=== PATIENT | female | born 1945 | race Caucasian/White ===

== ENCOUNTER → 2018-09-15 | Outpatient (REF) | payer OTHER ==
[2018-09-15 18:31] LABS: BLOOD UREA NITROGEN 16 MG/DL (7-18); CALCIUM LEVEL 8.9 MG/DL (8.8-10.2); CARBON DIOXIDE LEVEL 30 MEQ/L (21-32); CHLORIDE LEVEL 106 MEQ/L (98-107); CREATININE FOR GFR 0.63 MG/DL (0.55-1.30); GLOMERULAR FILTRATION RATE > 60.0 (>39); GLUCOSE, FASTING 114 MG/DL (70-100); POTASSIUM SERUM 4.7 MEQ/L (3.5-5.1); SODIUM LEVEL 141 MEQ/L (136-145)
== END ==
LOC: M LAB REF 16:57
PROVIDERS: ATTEND Internal Medicine Pulmonary Disease
DX: J44.9 Chronic obstructive pulmonary disease, unspecified (principal)

== ENCOUNTER → 2018-09-28 | Outpatient (CLI) | payer OTHER ==
[~2018-09-28] MED LIST: PROHANCE 279.3MG/ML 15ML VIAL (A9576) As Ordered ONE
--- NOTE | 2018-09-28 15:19 | REP ---
MRI BRAIN WITHOUT AND WITH IV GADOLINIUM: HISTORY: Tremor. Abnormal gait. Checking for mass lesion. Gadolinium enhancement dose: 15 mL of intravenous ProHance. TECHNIQUE: Axial and sagittal imaging planes are utilized for T1- and T2-weighted scans. Sequences include spin echo, fast spin echo, FLAIR, and diffusion weighted sequences. MRI FINDINGS: Craniocervical junction and upper cervical cord are unremarkable. No bony calvarial lesion is appreciated. The lateral, third, fourth ventricles are normal in position and appearance. There is minimal generalized volume loss. There is no evidence of intracranial mass lesion. No infarct or hemorrhage is seen. Diffusion weighted scans show no evidence to suggest acute ischemia. There is minimal small vessel change in the periventricular white matter on FLAIR T2-weighted scans in the frontal lobes. Post contrast gadolinium enhanced images show enhancement of normal vascular structures. No abnormal gadolinium enhancement is appreciated. There is some motion artifact on postcontrast coronal sequence and to a lesser extent the axial sequence. IMPRESSION: No acute intracranial lesion. Electronically Signed by Jono Slater MD 09/28/2018 05:30 P
== END ==
LOC: M RAD 13:11
PROVIDERS: ATTEND Internal Medicine Pulmonary Disease
DX: R26.89 Other abnormalities of gait and mobility (principal); R25.1 Tremor, unspecified
CPT/HCPCS: 70553; A9576